=== PATIENT | male | born 1980 | race Caucasian/White ===

== ENCOUNTER → 2020-06-07 11:39 | Outpatient (BNVA) | payer MEDICAID, SELFPAY | PROVIDERS: Visit Provider Family Medicine | DX: R09.89 Other specified symptoms and signs involving the circulatory and respiratory systems (principal); R59.0 Localized enlarged lymph nodes; Z72.0 Tobacco use; Z77.120 Contact with and (suspected) exposure to mold (toxic); Z13.1 Encounter for screening for diabetes mellitus; Z13.6 Encounter for screening for cardiovascular disorders | CPT/HCPCS: 71046; 80053; 80061; 85025 ==

== ENCOUNTER → 2021-11-08 12:53 | Outpatient (BNVA) | payer MEDICAID, SELFPAY | PROVIDERS: PCP Family Medicine; Visit Provider Otolaryngology | DX: R09.89 Other specified symptoms and signs involving the circulatory and respiratory systems (principal); K13.79 Other lesions of oral mucosa; Z72.89 Other problems related to lifestyle; F17.290 Nicotine dependence, other tobacco product, uncomplicated | CPT/HCPCS: 31575; 99204; 99213 ==